=== PATIENT | female | born 1990 | race Caucasian/White ===

== ENCOUNTER 2016-10-19 17:33 | Emergency (ER) | payer BC ==
[2016-10-19 18:27] VITALS: BP 147/62
--- NOTE | 2016-10-19 19:20 | EDM.PDOC ---
ED HPI GENERAL MEDICAL PROBLEM - General Chief Complaint: General Stated Complaint: DIABETIC SYMPTOMS, NAUSEA Time Seen by Provider: 10/19/16 18:55 - History of Present Illness INITIAL COMMENTS - FREE TEXT/NARRATIVE: Brought in by her stepfather Chief complaint Blood sugar concerns HPI 26-year-old female at 7-1/2 weeks gestation her third with no history of diabetes before or during , has been feeling flushed over the last couple of weeks. Omaright her stepfather noted that she was flushed also had headache and nausea and took her blood sugar using his equipment as he has diabetes. Blood sugar was 89. She had some vague good said she took an 8 but her nausea remained the same and she felt a bit worse and more lightheaded. A half hour later her blood sugar using her stepfather is machine was 80. After that she had a sandwich and then felt better. No fainting feeling No shaking or tremors No stomach pain, no vomiting. Yannick was concerned because he gets symptomatic when his sugars drop below 100. With her 2 previous pregnancies she did not have any significant nausea. 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 Denies: fever, chills, weakness, diaphoresis , decreased appetite HEENT: Reports: No symptoms Respiratory: Reports: No Symptoms Cardiovascular: Reports: No symptoms Endocrine: Reports: no symptoms GI/Abdominal: Reports: Nausea. Denies: Abdominal pain, Diarrhea, Vomiting : Reports: no symptoms Musculoskeletal: Reports: no symptoms Skin: Reports: no symptoms Neurological: Reports: Other (Lightheadedness). Denies: Confusion, Headache, Syncope, Tingling, Difficulty Walking, Weakness Psychiatric: Reports: No symptoms (Her) Hematologic/Lymphatic: Reports: no symptoms Immunologic: Reports: no symptoms ED EXAM, GENERAL - Physical Exam Exam: See Below Exam Limited By: No limitations General Appearance: alert, no apparent distress, other (Appears healthy, normal vital signs apart from mild elevation systolic blood pressure, normal color) Eye Exam: bilateral eye: normal inspection Ears: normal external exam Nose: normal inspection Throat/Mouth: Normal voice Head: atraumatic, normocephalic Neck: supple Respiratory/Chest: no respiratory distress, no accessory muscle use Cardiovascular: normal peripheral pulses, regular rate, rhythm Neurological: alert, oriented, no motor/sensory deficits Psychiatric: normal affect, normal mood Skin Exam: Warm, Dry, Normal color, No rash Course - Vital Signs Last Recorded V/S: Last Vital Signs Temp 36.9 C 10/19/16 18:26 Pulse 100 10/19/16 18:26 Resp 16 10/19/16 18:26 BP 147/62 H 10/19/16 18:26 Pulse Ox 97 10/19/16 18:26 - Re-Assessments/Exams Free Text/Narrative Re-Assessment/Exam: 10/19/16 21:00 26-year-old female with some malaise , flushing, nausea today. She has had some flushing for several wee no evidence of symptoms of hypoglycemia such as tremors weakness or near syncope. Blood sugars in the normal range although at the lower end of normal, symptoms have resolved but it is unlikely that they were due to the low blood sugar. She can continue monitoring blood sugars Get rechecked if symptoms worsenks. Departure - Departure Time of Disposition: 19:17 Disposition: Home, Self-Care 01 Condition: good Clinical Impression: Flushing Instructions: Hypoglycemia Referrals: Babita Roca CNM [Primary Care Provider] - Forms: ED Department Discharge Additional Instructions: Blood sugar was 96 tonight after being in the department one and a half hours Is not likely that your sugar of 80 was causing symptoms However it you may check your sugars from time to time Continued eat a healthy balanced diet during the and get rechecked if you have worsening symptoms
== END 2016-10-19 19:32 | disposition home or self-care (01) ==
LOC: JP.ED 17:33
DX: O99.351 Diseases of the nervous system complicating pregnancy, first trimester (principal); R23.2 Flushing; Z90.49 Acquired absence of other specified parts of digestive tract; Z87.442 Personal history of urinary calculi; Z79.899 Other long term (current) drug therapy; Z88.1 Allergy status to other antibiotic agents; Z3A.01 Less than 8 weeks gestation of pregnancy
CPT/HCPCS: 82962; 99284

== ENCOUNTER 2017-06-01 06:44 | Inpatient (IN) | payer BC, OTHER ==
[2017-06-01] MEDS ORDERED: Ondansetron 4 MG/2 ML SDV IV PRN (07:30)
[2017-06-01] MEDS ORDERED: fentaNYL 100 MCG/2 ML SDV IVPUSH PRN (07:30)
[2017-06-01] MEDS ORDERED: Acetaminophen 325 MG Tab PO PRN (07:30)
[2017-06-01] MEDS ORDERED: Sodium Chloride 0.9% 10 ML Syringe FLUSH PRN (07:30)
--- NOTE | 2017-06-01 09:17 | PCM.LDHP ---
L&D History of Present Illness - General Date of Service: 06/01/17 Admit Problem/Dx: Patient Status Order with Admit Dx/Problem 06/01/17 07:30 Patient Status [ADT] Routine Admission Diagnosis/Problem Admission Diagnosis/Problem Source of Information: Patient History Limitations: Reports: No Limitations - Related Data Allergies/Adverse Reactions: Allergies Allergy/AdvReac Type Severity Reaction Status Date / Time amoxicillin [Amoxicillin] Allergy Rash Verified 10/19/16 18:18 Home Medications: Home Meds Azithromycin [Azithromycin] 1 tab PO DAILY 10/19/16 [History] Past Medical History HEENT History: Reports: Impaired Vision Genitourinary History: Reports: Renal Calculus, UTI, Recurrent Other 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 tube remains in the right ear GI Surgical History: Reports: Cholecystectomy Female Surgical History: Reports: None Social & Family History - Tobacco Use Smoking Status *Q: Never Smoker Second Hand Smoke Exposure: No - Caffeine Use Caffeine Use: Reports: None - Alcohol Use Days Per Week of Alcohol Use: 0 - Recreational Drug Use Recreational Drug Use: No H&P Review of Systems - Review of Systems: Review Of Systems: See Below General: Reports: No Symptoms HEENT: Reports: No Symptoms Pulmonary: Reports: No Symptoms Cardiovascular: Reports: No Symptoms Gastrointestinal: Reports: No Symptoms Genitourinary: Reports: No Symptoms Musculoskeletal: Reports: No Symptoms Skin: Reports: No Symptoms Psychiatric: Reports: No Symptoms Neurological: Reports: No Symptoms Hematologic/Lymphatic: Reports: No Symptoms Immunologic: Reports: No Symptoms L&D Exam - Exam Exam: See Below - Vital Signs Vital Signs: Last Vital Signs Temp 36.5 C 06/01/17 07:00 Pulse 85 06/01/17 08:15 Resp 16 06/01/17 07:00 BP 117/57 L 06/01/17 08:42 Pulse Ox 93 L 06/01/17 07:30 Weight: 94.801 kg - OB Specific Contraction Frequency (min): 0 Movement: Active Heart Tones: Present Presentation: Vertex - Heller Score Heller Score Cervix Position: Anterior Heller Score Consistency: Soft Heller Score Effacement: 51-70% Heller Score Dilation: 3-4 cm Heller Score Infant's Station: -1 ,0 Heller Score Total: 10 - Exam General: Alert, Oriented HEENT: PERRLA, Conjunctiva Clear, EACs Clear, EOMI, Hearing Intact, Mucosa Moist & [place], Nares Patent, Normal Nasal Septum, Posterior Pharynx Clear, Pupils Equal, Pupils Reactive, TMs Clear Neck: Supple, Trachea Midline Lungs: Clear to Auscultation, Normal Respiratory Effort Cardiovascular: Regular Rate, Regular Rhythm GI/Abdominal Exam: Normal Bowel Sounds, Soft, Non-Tender, No Organomegaly, No Distention, No Abnormal Bruit, No Mass, Pelvis Stable Rectal Exam: Normal Exam, Normal Rectal Tone Genitourinary: Normal external exam, Normal bimanual exam, Normal speculum exam Back Exam: Normal Inspection, Full Range of Motion Extremities: Normal Inspection, Normal Range of Motion, Non-Tender, No Pedal Edema, Normal Capillary Refill Skin: Warm, Dry, Intact Neurological: Cranial Nerves Intact, Reflexes Equal Bilateral Psychiatric: Alert, Normal Affect, Normal Mood - Patient Data Lab Results Last 24 hrs: Laboratory Results - last 24 hr 06/01/17 06/01/17 06/01/17 Range/Units 07:01 07:01 07:07 WBC 10.6 (4.5-11.0) K/uL RBC 4.42 (3.30-5.50) M/uL Hgb 12.9 (12.0-15.0) g/dL Hct 38.1 (36.0-48.0) % MCV 86 (80-98) fL MCH 29 (27-31) pg MCHC 34 (32-36) % Plt Count 245 (150-400) K/uL Urine Color Yellow Urine Appearance Slightly cloudy Urine pH 7.0 (4.5-8.0) Ur Specific [place] 1.010 (1.008-1.030) Urine Protein Negative (NEGATIVE) mg/dL Urine Glucose (UA) Normal (NEGATIVE) mg/dL Urine Ketones Negative (NEGATIVE) mg/dL Urine Occult Blood Negative (NEGATIVE) Urine Nitrite Negative (NEGATIVE) Urine Bilirubin Negative (NEGATIVE) Urine Urobilinogen Normal (NORMAL) mg/dL Ur Leukocyte Esterase Small (NEGATIVE) Urine RBC 0-5 (0-5) Urine WBC 10-20 H (0-5) Ur Epithelial Cells Moderate Amorphous Sediment Not seen Urine Bacteria Moderate Urine Mucus Not seen Urine Opiates Screen Negative (NEGATIVE) Ur Oxycodone Screen Negative (NEGATIVE) Urine Methadone Screen Negative (NEGATIVE) Ur Propoxyphene Screen Negative (NEGATIVE) Ur Barbiturates Screen Negative (NEGATIVE) Ur Tricyclics Screen Negative (NEGATIVE) Ur Phencyclidine Scrn Negative (NEGATIVE) Ur Amphetamine Screen Negative (NEGATIVE) U Methamphetamines Scrn Negative (NEGATIVE) Urine MDMA Screen Negative (NEGATIVE) U Benzodiazepines Scrn Negative (NEGATIVE) U Cocaine Metab Screen Negative (NEGATIVE) U Marijuana (THC) Screen Negative (NEGATIVE) Result Diagrams: 06/01/17 07:07 - Problem List (1) SNOMED Code(s): 37455875 ICD Code: Z34.90 - ENCNTR FOR SUPRVSN OF NORMAL , UNSP, UNSP TRIMESTER Status: Acute Current Visit: Yes Qualifiers: Weeks of gestation: 39 weeks Qualified Code(s): Z3A.39 - 39 weeks gestation of (2) Elective induction of labor planned SNOMED Code(s): 631570840 ICD Code: [id number] - Status: Acute Current Visit: Yes Problem List Initiated/Reviewed/Updated: Yes Orders Last 24hrs: Active Orders 24 hr Category Date Time Status Patient Status [ADT] Routine ADT 06/01/17 07:30 Active Ambulate [RC] PER UNIT ROUTINE Care 06/01/17 07:30 Active Communication Order [RC] ASDIRECTED Care 06/01/17 07:30 Active Notify Provider Vital Signs [RC] PRN Care 06/01/17 07:30 Active Notify Provider [RC] PRN Care 06/01/17 07:30 Active Up ad Jena [RC] ASDIRECTED Care 06/01/17 07:30 Active VTE/DVT Education [RC] Click to Edit Care 06/01/17 07:33 Active Vital Signs [RC] PER UNIT ROUTINE Care 06/01/17 07:30 Active Regular Diet [DIET] Diet 06/01/17 Breakfast Active CBC WITH AUTO DIFF [HEME] Routine Lab 06/02/17 06:00 Ordered Acetaminophen [Tylenol] Med 06/01/17 07:30 Active 650 mg PO Q4H PRN Ondansetron [Zofran] Med 06/01/17 07:30 Active 4 mg IV Q4H PRN Oxytocin/Normal Saline [Pitocin in NS 20 Units/1,000 ML Med 06/01/17 07:45 Active ] 20 unit in 1,000 ml IV TITRATE Sodium Chloride 0.9% [Saline Flush] Med 06/01/17 07:30 Active 10 ml FLUSH ASDIRECTED PRN fentaNYL [Sublimaze] Med 06/01/17 07:30 Active 100 mcg IVPUSH Q1H PRN DVT/VTE Prophylaxis Reflex [OM.PC] Routine Oth 06/01/17 07:30 Ordered Saline Lock Insert [OM.PC] Routine Oth 06/01/17 07:30 Ordered Resuscitation Status Routine Resus Stat 06/01/17 07:30 Ordered Medication Orders Acetaminophen (Tylenol) 650 mg PO Q4H PRN PRN Reason: Pain (Mild 1-3) and fever Fentanyl (Sublimaze) 100 mcg IVPUSH Q1H PRN PRN Reason: Pain (moderate 4-6) Oxytocin/Sodium Chloride (Pitocin In Ns 20 Units/1,000 Ml) 20 unit in 1,000 mls @ 6 mls/hr IV TITRATE CHARO; 2 MUNITS/MIN PRN Reason: Protocol Last Titration: 06/01/17 09:00 Dose: 6 munits/min, 18 mls/hr Titration: 06/01/17 08:30 Dose: 4 munits/min, 12 mls/hr Admin: 06/01/17 08:00 Dose: 2 munits/min, 6 mls/hr Ondansetron HCl (Zofran) 4 mg IV Q4H PRN PRN Reason: Nausea/Vomiting Sodium Chloride (Saline Flush) 10 ml FLUSH ASDIRECTED PRN PRN Reason: Keep Vein Open Assessment/Plan Comment:: 06/01/2017 26 yo here at 39 5/7 gestational weeks for a planned elective induction of labor SVE-3-4/60/-1 Heller score-10 Plan- Continue to monitor contractions for active labor Continue to monitor FHTs Start Pitocin per protocol Pain management per patient request Patient may eat regular diet Up ad jena Plan and anticipate a vaginal delivery
--- NOTE | 2017-06-01 12:34 | PCM.PNLD ---
Labor Progress Note - VS & Meds Vital Signs: Last Vital Signs Temp 36.6 C 06/01/17 11:06 Pulse 72 06/01/17 12:02 Resp 16 06/01/17 07:00 BP 121/68 06/01/17 12:02 Pulse Ox 97 06/01/17 11:06 Active Medications: Current Medications Acetaminophen (Tylenol) 650 mg PO Q4H PRN PRN Reason: Pain (Mild 1-3) and fever Fentanyl (Sublimaze) 100 mcg IVPUSH Q1H PRN PRN Reason: Pain (moderate 4-6) Oxytocin/Sodium Chloride (Pitocin In Ns 20 Units/1,000 Ml) 20 unit in 1,000 mls @ 6 mls/hr IV TITRATE CHARO; 2 MUNITS/MIN PRN Reason: Protocol Last Titration: 06/01/17 11:54 Dose: 11 munits/min, 33 mls/hr Ondansetron HCl (Zofran) 4 mg IV Q4H PRN PRN Reason: Nausea/Vomiting Sodium Chloride (Saline Flush) 10 ml FLUSH ASDIRECTED PRN PRN Reason: Keep Vein Open - Uterine Contractions Uterine Monitoring Mode: External Bent Contraction Frequency (min): 3-5.5 Contraction Duration (sec): 60-80 Contraction Intensity: Mild to Moderate Uterine Resting Tone: Soft - Monitoring Strip Review: Category I - Vaginal Exam Dilation (cm): 4-5 Effacement (Percent): 60 Station: 0 Cervical Position: Anterior Sterile Vaginal Exam Performed By: Babita Roca - Labor Progress (Free Text) Labor Progress: 06/01/2017 Patient progressing nicely SVE-4-5/60/-1-0 AROM done clear fluid Patient tolerating pain with position change and breathing FHTs category one Contractions getting more regular Plan- Continue to monitor labor Continue to monitor FHTs Continue pitocin per protocol Pain management per patient request Plan and anticipate a vaginal delivery
[2017-06-01] MEDS ORDERED: Lidocaine 1% 50 ML MDV INJECT ONE (14:26)
[2017-06-01] MEDS ORDERED: Lidocaine 1% 50 ML MDV ONE (14:34)
[2017-06-01] MEDS ORDERED: Witch Hazel Medicated Pads 100/Jar TOP PRN (15:07)
[2017-06-01] MEDS ORDERED: Acetaminophen/HYDROcodone 325-5 MG Tab PO PRN (15:07)
[2017-06-01] MEDS ORDERED: Lanolin 100% Cream 40 GM Tube TOP PRN (15:07)
[2017-06-01] MEDS ORDERED: Ibuprofen 600 MG Tab PO PRN (15:07)
[2017-06-01] MEDS ORDERED: Docusate Sodium 100 MG Cap PO PRN (15:07)
[2017-06-01] MEDS ORDERED: Ibuprofen 200 MG Tab, 24 Tab Bulk Bottle PO PRN (15:09)
[2017-06-01] MEDS ORDERED: Acetaminophen 325 MG Tab, 50 Tab Bulk Bottle PO PRN (15:09)
--- NOTE | 2017-06-01 16:52 | PCM.DEL ---
L & D Note - General Info Date of Service: 06/01/17 Mother's Due Date: 06/03/17 - Delivery Note Labor: Induced by Oxytocin Cervical Ripening Method: Oxytocin Delivery Outcome: Livebirth Delivery Method: Spontaneous Vaginal Delivery-Single Infant Delivery Mode: Spontaneous Presentation: Vertex Nuchal Cord: Present (times one loose), Reduced Anesthesia Type: None Amniotic Fluid Description: Clear Episiotomy Type: None Laceration: None Placenta: Intact, Spontaneous Cord: 3 Vessels Resuscitation Needed: No : Bulb Syringe, Stimulated, Warmed, [place] Used Score 1 min: 9 Score 5 min: 9 Score 10 min: 10 Second Stage Interventions: Reports: Encouragement Given, Pushing Effectively Delivery Comments (Free Text/Narrative):: 06/01/2017 26 yo at 39 5/7 gestational weeks delivered a viable female infant on 08/2016 @ 1447 in JUANJO position with loose nuchal cord easily reduced times one. APGARS-9/9/10, weight-6lbs 10.6oz, length-19 inches, dried, stimulated, and warmed on mothers abdomen. Delayed cord clamping done, then cord double clamped by provider and cord cut by father of infant. Three vessel cord, placenta spontaneous and intact. No lacerations noted of cervix, perineum , vagina, or rectum. EBL-150ml. now skin to skin with mother and both are stable in labor room. - General Info Date of Service: 06/01/17 Admission Dx/Problem (Free Text): Patient Status Order with Admit Dx/Problem 06/01/17 07:30 Patient Status [ADT] Routine Admission Diagnosis/Problem Admission Diagnosis/Problem Functional Status: Reports: Pain Controlled - Review of Systems General: Reports: No Symptoms HEENT: Reports: No Symptoms Pulmonary: Reports: No Symptoms Cardiovascular: Reports: No Symptoms Gastrointestinal: Reports: No Symptoms Genitourinary: Reports: No Symptoms Musculoskeletal: Reports: No Symptoms Skin: Reports: No Symptoms Neurological: Reports: No Symptoms Psychiatric: Reports: No Symptoms - Patient Data Vitals - Most Recent: Last Vital Signs Temp 36.6 C 06/01/17 14:00 Pulse 70 06/01/17 15:10 Resp 16 06/01/17 07:00 BP 96/75 06/01/17 15:10 Pulse Ox 96 06/01/17 13:30 Weight - Most Recent: 94.801 kg Lab Results Last 24 Hours: Laboratory Results - last 24 hr 06/01/17 06/01/17 06/01/17 Range/Units 07:01 07:01 07:07 WBC 10.6 (4.5-11.0) K/uL RBC 4.42 (3.30-5.50) M/uL Hgb 12.9 (12.0-15.0) g/dL Hct 38.1 (36.0-48.0) % MCV 86 (80-98) fL MCH 29 (27-31) pg MCHC 34 (32-36) % Plt Count 245 (150-400) K/uL Urine Color Yellow Urine Appearance Slightly cloudy Urine pH 7.0 (4.5-8.0) Ur Specific [place] 1.010 (1.008-1.030) Urine Protein Negative (NEGATIVE) mg/dL Urine Glucose (UA) Normal (NEGATIVE) mg/dL Urine Ketones Negative (NEGATIVE) mg/dL Urine Occult Blood Negative (NEGATIVE) Urine Nitrite Negative (NEGATIVE) Urine Bilirubin Negative (NEGATIVE) Urine Urobilinogen Normal (NORMAL) mg/dL Ur Leukocyte Esterase Small (NEGATIVE) Urine RBC 0-5 (0-5) Urine WBC 10-20 H (0-5) Ur Epithelial Cells Moderate Amorphous Sediment Not seen Urine Bacteria Moderate Urine Mucus Not seen Urine Opiates Screen Negative (NEGATIVE) Ur Oxycodone Screen Negative (NEGATIVE) Urine Methadone Screen Negative (NEGATIVE) Ur Propoxyphene Screen Negative (NEGATIVE) Ur Barbiturates Screen Negative (NEGATIVE) Ur Tricyclics Screen Negative (NEGATIVE) Ur Phencyclidine Scrn Negative (NEGATIVE) Ur Amphetamine Screen Negative (NEGATIVE) U Methamphetamines Scrn Negative (NEGATIVE) Urine MDMA Screen Negative (NEGATIVE) U Benzodiazepines Scrn Negative (NEGATIVE) U Cocaine Metab Screen Negative (NEGATIVE) U Marijuana (THC) Screen Negative (NEGATIVE) Med Orders - Current: Current Medications Acetaminophen (Tylenol) 650 mg PO Q4H PRN PRN Reason: Pain (Mild 1-3) and fever Acetaminophen (Tylenol Bulk Bottle) 325 - 650 mg PO Q4H PRN PRN Reason: Pain Hydrocodone Bitart/Acetaminophen ([place] 325-5 Mg) 1 tab PO Q4H PRN PRN Reason: Pain (moderate 4-6) Docusate Sodium (Colace) 100 mg PO BID PRN PRN Reason: Constipation Emollient Ointment (Lansinoh Hpa) 0 gm TOP ASDIRECTED PRN PRN Reason: Sore Nipples Fentanyl (Sublimaze) 100 mcg IVPUSH Q1H PRN PRN Reason: Pain (moderate 4-6) Oxytocin/Sodium Chloride (Pitocin In Ns 20 Units/1,000 Ml) 20 unit in 1,000 mls @ 6 mls/hr IV TITRATE CHARO; 2 MUNITS/MIN PRN Reason: Protocol Last Titration: 06/01/17 12:44 Dose: 13 munits/min, 39 mls/hr Ibuprofen (Motrin Bulk Bottle) 600 mg PO Q6H PRN PRN Reason: Pain Ondansetron HCl (Zofran) 4 mg IV Q4H PRN PRN Reason: Nausea/Vomiting Sodium Chloride (Saline Flush) 10 ml FLUSH ASDIRECTED PRN PRN Reason: Keep Vein Open Witch Brittany (Tucks) 1 pad TOP ASDIRECTED PRN PRN Reason: Hemorrhoids Discontinued Medications Oxytocin/Sodium Chloride (Pitocin In Ns 20 Units/1,000 Ml) 20 unit in 1,000 mls @ 2,997 mls/hr IV ONETIME ONE; 999 MUNITS/MIN PRN Reason: Protocol Stop: 06/01/17 15:30 Lidocaine HCl (Xylocaine 1%) 50 ml INJECT ONETIME ONE Stop: 06/01/17 14:27 Lidocaine HCl (Xylocaine 1%) Confirm Administered Dose 50 ml .ROUTE .STK-MED ONE Stop: 06/01/17 14:35 - Exam General: Alert, Oriented HEENT: Pupils Equal, Pupils Reactive, EOMI, Mucous Membr. Moist/[place] Neck: Supple Lungs: Clear to Auscultation, Normal Respiratory Effort Cardiovascular: Regular Rate, Regular Rhythm GI/Abdominal Exam: Normal Bowel Sounds, Soft, Non-Tender, No Organomegaly, No Distention, No Abnormal Bruit, No Mass, Pelvis Stable (Female) Exam: Normal External Exam, Normal Speculum Exam, Normal Bimanual Exam, Enlarged Uterus, Uterine Tenderness Back Exam: Normal Inspection, Full Range of Motion Extremities: Normal Inspection, Normal Range of Motion, Non-Tender, No Pedal Edema, Normal Capillary Refill Skin: Warm, Dry, Intact Wound/Incisions: Healing Well Neurological: No New Focal Deficit Psy/Mental Status: Alert, Normal Affect, Normal Mood - Problem List & Annotations (1) SNOMED Code(s): 82148754 Code(s): Z34.90 - ENCNTR FOR SUPRVSN OF NORMAL , UNSP, UNSP TRIMESTER Status: Acute Current Visit: Yes Qualifiers: Weeks of gestation: 39 weeks Qualified Code(s): Z3A.39 - 39 weeks gestation of (2) Elective induction of labor planned SNOMED Code(s): 211644638 Code(s): CVI1695 - Status: Acute Current Visit: Yes (3) Normal vaginal delivery SNOMED Code(s): 29257567 Code(s): O80 - ENCOUNTER FOR FULL-TERM UNCOMPLICATED DELIVERY Status: Acute Current Visit: Yes - Problem List Review Problem List Initiated/Reviewed/Updated: Yes - My Orders Last 24 Hours: My Active Orders 06/01/17 07:30 Patient Status [ADT] Routine Ambulate [RC] PER UNIT ROUTINE Communication Order [RC] ASDIRECTED Notify Provider Vital Signs [RC] PRN Notify Provider [RC] PRN Up ad Anila [RC] ASDIRECTED Vital Signs [RC] PER UNIT ROUTINE Acetaminophen [Tylenol] 650 mg PO Q4H PRN Ondansetron [Zofran] 4 mg IV Q4H PRN Sodium Chloride 0.9% [Saline Flush] 10 ml FLUSH ASDIRECTED PRN fentaNYL [Sublimaze] 100 mcg IVPUSH Q1H PRN DVT/VTE Prophylaxis Reflex [OM.PC] Routine Saline Lock Insert [OM.PC] Routine Resuscitation Status Routine 06/01/17 07:33 VTE/DVT Education [RC] Click to Edit 06/01/17 07:45 Oxytocin/Normal Saline [Pitocin in NS 20 Units/1,000 ML] 20 unit in 1,000 ml IV TITRATE 06/01/17 15:07 Patient Status [ADT] Routine Acetaminophen/HYDROcodone [[place] 325-5 MG] 1 tab PO Q4H PRN Docusate Sodium [Colace] 100 mg PO BID PRN Lanolin [Lansinoh HPA] 0 gm TOP ASDIRECTED PRN Witch Brittany [Tucks] 1 pad TOP ASDIRECTED PRN Assess Lochia [WOMSER] Per Unit Routine Assess Uterine Involution [WOMSER] Per Unit Routine 06/01/17 15:08 Perineal Care [OM.PC] Per Unit Routine 06/01/17 15:09 Acetaminophen [Tylenol Bulk Bottle] 325 - 650 mg PO Q4H PRN Ibuprofen [Motrin Bulk Bottle] 600 mg PO Q6H PRN 06/01/17 Breakfast Regular Diet [DIET] 06/02/17 06:00 CBC WITH AUTO DIFF [HEME] Routine - Assessment Assessment:: 06/01/2017 26 yo G3 now P3 at 39 5/7 gestational weeks delivered a viable female infant at 1447 on 06/01/2017 Labs-GBS negative, B positive, Rubella Immune, RPR nonreactive, Hep B negative, HIV negative - Plan Plan:: 06/01/2017 26 yo here at 39 5/7 gestational weeks for a planned elective induction of labor SVE-3-4/60/-1 Heller score-10 Plan- Continue to monitor contractions for active labor Continue to monitor FHTs Start Pitocin per protocol Pain management per patient request Patient may eat regular diet Up ad anila Plan and anticipate a vaginal delivery 06/01/2017 Routine Cares Encourage and support Plan discharge 24-48 hours
--- NOTE | 2017-06-02 08:29 | PCM.PNPP ---
- General Info Date of Service: 06/02/17 Admission Dx/Problem (Free Text): Patient Status Order with Admit Dx/Problem 06/01/17 07:30 Patient Status [ADT] Routine Admission Diagnosis/Problem Admission Diagnosis/Problem Functional Status: Reports: Pain Controlled - Review of Systems General: Reports: No Symptoms HEENT: Reports: No Symptoms Pulmonary: Reports: No Symptoms Cardiovascular: Reports: No Symptoms Gastrointestinal: Reports: No Symptoms Genitourinary: Reports: No Symptoms Musculoskeletal: Reports: No Symptoms Skin: Reports: No Symptoms Neurological: Reports: No Symptoms Psychiatric: Reports: No Symptoms - General Info Date of Service: 06/02/17 - Patient Data Vital Signs - Most Recent: Last Vital Signs Temp 36.4 C 06/02/17 08:23 Pulse 63 06/02/17 08:23 Resp 16 06/02/17 08:23 BP 107/50 L 06/02/17 08:23 Pulse Ox 98 06/02/17 08:23 Weight - Most Recent: 94.801 kg Lab Results - Last 24 Hours: Laboratory Results - last 24 hr 06/02/17 Range/Units 05:21 WBC 11.5 H (4.5-11.0) K/uL RBC 3.97 (3.30-5.50) M/uL Hgb 11.6 L (12.0-15.0) g/dL Hct 34.6 L (36.0-48.0) % MCV 87 (80-98) fL MCH 29 (27-31) pg MCHC 34 (32-36) % Plt Count 227 (150-400) K/uL Neut % (Auto) 68 H (36-66) % Lymph % (Auto) 23 L (24-44) % [place] % (Auto) 8 H (2-6) % Eos % (Auto) 1 L (2-4) % Baso % (Auto) 0 (0-1) % Med Orders - Current: Current Medications Acetaminophen (Tylenol) 650 mg PO Q4H PRN PRN Reason: Pain (Mild 1-3) and fever Acetaminophen (Tylenol Bulk Bottle) 325 - 650 mg PO Q4H PRN PRN Reason: Pain Last Admin: 06/01/17 17:21 Dose: 1 bottle Hydrocodone Bitart/Acetaminophen ([place] 325-5 Mg) 1 tab PO Q4H PRN PRN Reason: Pain (moderate 4-6) Docusate Sodium (Colace) 100 mg PO BID PRN PRN Reason: Constipation Emollient Ointment (Lansinoh Hpa) 0 gm TOP ASDIRECTED PRN PRN Reason: Sore Nipples Last Admin: 06/01/17 17:22 Dose: 1 applic Fentanyl (Sublimaze) 100 mcg IVPUSH Q1H PRN PRN Reason: Pain (moderate 4-6) Oxytocin/Sodium Chloride (Pitocin In Ns 20 Units/1,000 Ml) 20 unit in 1,000 mls @ 6 mls/hr IV TITRATE CHARO; 2 MUNITS/MIN PRN Reason: Protocol Last Titration: 06/01/17 12:44 Dose: 13 munits/min, 39 mls/hr Ibuprofen (Motrin Bulk Bottle) 600 mg PO Q6H PRN PRN Reason: Pain Last Admin: 06/01/17 17:22 Dose: 1 bottle Ondansetron HCl (Zofran) 4 mg IV Q4H PRN PRN Reason: Nausea/Vomiting Sodium Chloride (Saline Flush) 10 ml FLUSH ASDIRECTED PRN PRN Reason: Keep Vein Open Witch Brittany (Tucks) 1 pad TOP ASDIRECTED PRN PRN Reason: Hemorrhoids Discontinued Medications Oxytocin/Sodium Chloride (Pitocin In Ns 20 Units/1,000 Ml) 20 unit in 1,000 mls @ 2,997 mls/hr IV ONETIME ONE; 999 MUNITS/MIN PRN Reason: Protocol Stop: 06/01/17 15:30 Last Admin: 06/01/17 17:34 Dose: Not Given Lidocaine HCl (Xylocaine 1%) 50 ml INJECT ONETIME ONE Stop: 06/01/17 14:27 Last Admin: 06/01/17 16:44 Dose: Not Given Lidocaine HCl (Xylocaine 1%) Confirm Administered Dose 50 ml .ROUTE .STK-MED ONE Stop: 06/01/17 14:35 Last Admin: 06/01/17 16:44 Dose: Not Given - Interaction Disposition, : in Room with Family Infant Interaction: Holding Feeding: Breastfed ; Nursed Well, Encouraged to Breastfeed Support Person: - Recovery Exam Fundal Tone: Firm Fundal Level: At Umbilicus Fundal Placement: Midline Lochia Amount: Small, Moderate Lochia Color: Rubra/Red Perineum Description: Intact, Minimal Bruising/Swelling Episiotomy/Laceration: None - Exam General: Alert, Oriented HEENT: Pupils Equal Neck: Supple Lungs: Clear to Auscultation, Normal Respiratory Effort Cardiovascular: Regular Rate, Regular Rhythm GI/Abdominal Exam: Normal Bowel Sounds, Soft, Non-Tender, No Organomegaly, No Distention, No Abnormal Bruit, No Mass, Pelvis Stable Extremities: Normal Inspection, Normal Range of Motion, Non-Tender, No Pedal Edema, Normal Capillary Refill Skin: Warm, Dry, Intact Wound/Incisions: Healing Well Neurological: No New Focal Deficit Psy/Mental Status: Alert, Normal Affect, Normal Mood - Problem List & Annotations (1) SNOMED Code(s): 18459093 Code(s): Z34.90 - ENCNTR FOR SUPRVSN OF NORMAL , UNSP, UNSP TRIMESTER Status: Acute Current Visit: Yes Qualifiers: Weeks of gestation: 39 weeks Qualified Code(s): Z3A.39 - 39 weeks gestation of (2) Elective induction of labor planned SNOMED Code(s): 981608499 Code(s): [id number] - Status: Acute Current Visit: Yes (3) Normal vaginal delivery SNOMED Code(s): 09535553 Code(s): O80 - ENCOUNTER FOR FULL-TERM UNCOMPLICATED DELIVERY Status: Acute Current Visit: Yes - Problem List Review Problem List Initiated/Reviewed/Updated: Yes - My Orders Last 24 Hours: My Active Orders 06/01/17 07:30 Patient Status [ADT] Routine Ambulate [RC] PER UNIT ROUTINE Notify Provider Vital Signs [RC] PRN Notify Provider [RC] PRN Up ad Jena [RC] ASDIRECTED Vital Signs [RC] Q4H Acetaminophen [Tylenol] 650 mg PO Q4H PRN Ondansetron [Zofran] 4 mg IV Q4H PRN Sodium Chloride 0.9% [Saline Flush] 10 ml FLUSH ASDIRECTED PRN fentaNYL [Sublimaze] 100 mcg IVPUSH Q1H PRN DVT/VTE Prophylaxis Reflex [OM.PC] Routine Saline Lock Insert [OM.PC] Routine Resuscitation Status Routine 06/01/17 07:33 VTE/DVT Education [RC] Click to Edit 06/01/17 07:45 Oxytocin/Normal Saline [Pitocin in NS 20 Units/1,000 ML] 20 unit in 1,000 ml IV TITRATE 06/01/17 15:07 Patient Status [ADT] Routine Acetaminophen/HYDROcodone [[place] 325-5 MG] 1 tab PO Q4H PRN Docusate Sodium [Colace] 100 mg PO BID PRN Lanolin [Lansinoh HPA] 0 gm TOP ASDIRECTED PRN Witch Brittany [Tucks] 1 pad TOP ASDIRECTED PRN Assess Lochia [WOMSER] Per Unit Routine Assess Uterine Involution [WOMSER] Per Unit Routine 06/01/17 15:08 Perineal Care [OM.PC] Per Unit Routine 06/01/17 15:09 Acetaminophen [Tylenol Bulk Bottle] 325 - 650 mg PO Q4H PRN Ibuprofen [Motrin Bulk Bottle] 600 mg PO Q6H PRN 06/01/17 Breakfast Regular Diet [DIET] - Assessment Assessment:: 06/01/2017 26 yo G3 now P3 at 39 5/7 gestational weeks delivered a viable female at 1447 on 06/01/2017 Labs-GBS negative, B positive, Rubella Immune, RPR nonreactive, Hep B negative, HIV negative 06/02/2017 day one good Voiding and passing gas Hgb 11.6 Fundus firm, bleeding decreased - Plan Plan:: 06/01/2017 26 yo here at 39 5/7 gestational weeks for a planned elective induction of labor SVE-3-/-1 Heller score-10 Plan- Continue to monitor contractions for active labor Continue to monitor FHTs Start Pitocin per protocol Pain management per patient request Patient may eat regular diet Up ad jena Plan and anticipate a vaginal delivery 06/01/2017 Routine Cares Encourage and support Plan discharge 24-48 hours 06/02/2017 Continue Routine Cares Continue to encourage and support Plan discharge at 24 hrs per mothers request
[2017-06-02 13:08] VITALS: BP 107/65
== END 2017-06-02 16:00 | disposition home or self-care (01) | DRG 560 ==
LOC: JP.OB 06:44 → OBSVTOIN 14:47 → JP.MS 14:47 → JP.OB 14:47
PROVIDERS: ADMIT Advanced Practice Midwife; ATTEND Advanced Practice Midwife
PROC: 10E0XZZ Delivery of Products of Conception, External Approach (ICD-10-PCS; principal; 2017-06-01)
PROC: 3E0P3VZ Introduction of Hormone into Female Reproductive, Percutaneous Approach (ICD-10-PCS; 2017-06-01)
PROC: 10907ZC Drainage of Amniotic Fluid, Therapeutic from Products of Conception, Via Natural or Artificial Opening (ICD-10-PCS; 2017-06-01)
DX: O69.81X0 Labor and delivery complicated by cord around neck, without compression, not applicable or unspecified (principal); Z3A.39 39 weeks gestation of pregnancy; Z37.0 Single live birth; Z88.1 Allergy status to other antibiotic agents
CPT/HCPCS: 36415; 59409; 80305; 81001; 85025; 85027; 99211; A9270-GY; J2590